=== PATIENT | male | born 2000 | race Caucasian/White ===

== ENCOUNTER 2023-07-30 11:40 | Emergency (ER) | payer OTHER, SELFPAY ==
[2023-07-30 11:41] VITALS: BP 132/79; PULSE 72; RESP 14; TEMP 36.9; O2SAT 98; BMI 20.5
--- NOTE | 2023-07-30 12:34 | PC.NURSE ---
Triage completed and documented by OCTAVIA Calhoun under Anthony,EMT Explained to patient that MD was in with a critical patient at this time and would be in to see him as soon as possible. Pt agreeable and understanding at this time.
--- NOTE | 2023-07-30 13:14 | PC.NURSE ---
Dr. Khan speaking with Yissel in pharmacy
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
--- NOTE | 2023-07-30 14:02 | PC.NURSE ---
Spoke to clinic pharmacy for info on prescriptions.
[2023-07-30] MEDS: RALTEGRAVIR 400MG TABLET 400 MG PO (14:05)
[2023-07-30] MEDS: EMTRICITABINE/TENOFOVIR 200/300MG TAB 1 EACH PO (14:06)
[2023-07-30 14:14] LABS: Activated Partial Thrombo Time 30.3 seconds (22.8-30.6); Alanine Aminotransferase 19 U/L (12-78); Albumin Level 4.5 g/dl (3.5-5.0); Alkaline Phosphatase 54 U/L (38-126); Aspartate Amino Transferase 27 U/L (17-59); INR 1.03 (0.9-1.1); Prothrombin Time 11.1 seconds (10.1-12.5); Total Protein,Serum 7.2 g/dl (6.3-8.2)
[2023-07-30 14:25] LABS: Basophils % 0.7 % (0.1-2.0); Eosinophils % 0.3 % (0.1-12.0); Hematocrit 45.5 % (42.0-52.0); Hemoglobin 15.4 g/dL (14.1-18.0); Lymphocytes # 1.8 K/mm3 (0.7-4.5); Lymphocytes % 37.8 % (10-50); Mean Corpuscular HGB Conc 33.8 g/dL (31.8-35.4); Mean Corpuscular Volume 91.7 fl (80-94); Mean Platelet Volume 7.9 fl (7.4-10.4); Monocytes # 0.3 K/mm3 (0.1-1.0); Monocytes % 5.8 % (1.7-9.3); Neutrophils # 2.7 K/mm3 (1.8-7.8); Neutrophils % 55.4 % (37.0-80.0); Platelet Count 257 K/mm3 (142-424); Red Blood Count 4.96 M/mm3 (4.60-6.20); Red Cell Distribution Width 13.8 % (11.5-17.5); White Blood Count 4.9 K/mm3 (4.8-10.8)
[2023-07-30 14:46] VITALS: BP 128/86; PULSE 86; RESP 18; O2SAT 98
[2023-07-30 14:47] VITALS: BP 128/88; PULSE 86; RESP 18; TEMP 37; O2SAT 98
--- NOTE | 2023-07-30 14:48 | PC.NURSE ---
pharmacy called to let patient know meds will be available tomorrow.
[2023-08-12 13:57] LABS: HIV Screen 4th Generation wRfx Non Reactive; Hepatitis B Surf Ab Quant 12.6; Hepatitis B Surface Antigen Negative
[2023-08-12 13:58] LABS: Hepatitis C Antibody Non Reactive
== END 2023-07-30 14:49 | disposition home or self-care (01) ==
PROVIDERS: Emergency Provider Emergency Medicine; PCP Family Medicine
DX: Z20.6 Contact with and (suspected) exposure to human immunodeficiency virus [HIV] (principal); Z72.52 High risk homosexual behavior
CPT/HCPCS: 80076; 85025; 85610; 85730; 86703; 86706; 87340; 87380; 99285; G0432